=== PATIENT | female | born 1970 | race Caucasian/White ===

== ENCOUNTER → 2023-12-27 06:22 | Day surgery (SDC) | payer BC, SELFPAY | LOC: GI 06:22 | PROVIDERS: ATTENDING PHYSICIAN Internal Medicine Gastroenterology | DX: Z12.11 Encounter for screening for malignant neoplasm of colon (principal); K63.89 Other specified diseases of intestine; K64.8 Other hemorrhoids; Z86.010 Personal history of colon polyps; Z98.890 Other specified postprocedural states | CPT/HCPCS: 45380; 88305 ==